=== PATIENT | male | born 1995 | race Two or more races ===

== ENCOUNTER 2017-02-06 | Emergency (ER) | payer OTHER ==
[2017-02-06] MEDS ORDERED: ZYRTEC10 M7 PO (15:26)
[2017-02-06] MEDS ORDERED: GENTAK5 M1 OP (15:44)
== END 2017-02-06 15:59 ==
DX: S05.01XA Injury of conjunctiva and corneal abrasion without foreign body, right eye, initial encounter (principal); H10.9 Unspecified conjunctivitis; X58.XXXA Exposure to other specified factors, initial encounter